=== PATIENT | female | born 1960 | race Caucasian/White ===

== ENCOUNTER 2021-10-22 08:45 | Inpatient (IN) | payer OTHER ==
[~2021-10-22] VITALS: Ht 162.6 cm; Wt 62.0 kg
[2021-10-22 21:00] VITALS: BP 113/72
[2021-10-22] MEDS ORDERED: temazepam 15mg capsule PO PRN (21:00)
--- NOTE | 2021-10-22 21:00 | NUR ---
Received patient on a stretcher patient ,on 2l/nc saturation of 92% not able to verbalize needs but responds to pain. patient, and daughter and her mother, are not able to answer admission questions. daughter verbalizes she has not seen her mother for 10 years so she has no information on the mother.
[2021-10-22] MEDS ORDERED: acetaminophen 120MG suppository, rectal RC PRN (21:40)
[2021-10-22 22:00] VITALS: BP 122/78
[2021-10-22] MEDS ORDERED: morphine 2 MG/ML inj. syringe IV PRN (22:40)
[2021-10-22] MEDS ORDERED: magnesium 2GM in 50ml NS 50 ML IV PRN (22:40)
[2021-10-22] MEDS ORDERED: HYDROcodone/acetaminophen 5mg/325mg tablet PO PRN (22:40)
[2021-10-22] MEDS ORDERED: diphenhydrAMINE 50 mg/ml inj IV PRN (22:40)
[2021-10-22] MEDS ORDERED: ondansetron/PF 4mg/2ml inj IV PRN (22:40)
[2021-10-22] MEDS ORDERED: magnesium 4gm in 100ml NS 100 ML IV PRN (22:40)
[2021-10-22] MEDS ORDERED: acetaminophen 325mg tablet PO PRN ×2 (22:40)
[2021-10-22] MEDS ORDERED: diphenhydrAMINE 25mg capsule PO PRN (22:40)
[2021-10-22] MEDS ORDERED: acetaminophen 650mg rectal suppository RC PRN (22:40)
[2021-10-22] MEDS ORDERED: potassium CL 10mEq/100ml bag 100 ML IV PRN (22:40)
[2021-10-22] MEDS ORDERED: bisacodyl 10mg suppository rectal RC PRN (22:40)
[2021-10-22] MEDS ORDERED: magnesium Cl slow-release 64mg tablet PO PRN (22:40)
[2021-10-22] MEDS ORDERED: potassium Cl 20 mEq SR tablet PO PRN ×2 (22:40)
[2021-10-22] MEDS ORDERED: mag hydrox/Alum hydrox/simeth 30ml oral suspension PO PRN (22:40)
[2021-10-22] MEDS ORDERED: magnesium hydroxide 30ml (MOM) UD suspension PO PRN (22:40)
[2021-10-22] MEDS ORDERED: ondansetron 4mg rapidly disintigrating tab PO PRN (22:40)
[2021-10-22] MEDS: ringers solution, lacted 1,000 ML IV SCH (23:44)
[2021-10-23 00:13] LABS: ABG BASE EXCESS -0.4 mmol/L (-2.0-2.0); ABG HCO3 22.3 mmol/L (22.0-26.0); ABG PCO2 (T) 30.3 mmHg (32.0-45.0); ABG PO2 (T) 86.8 mmHg (75.0-100.0); ALLEN'S TEST POSITIVE; FCOHb 0.3 % (0.0-3.9); FLOW 2 L/min; FMetHb 0.3 % (0.0-1.5); FO2Hb 96.4 % (94-97); TOTAL HEMOGLOBIN 11.1 G/dl (12.0-16.0)
[2021-10-23 00:48] LABS: APTT 26 SECONDS (22-32)
[2021-10-23 00:51] LABS: HEMOGLOBIN A1C 4.4 % (4.5-6.2)
[2021-10-23 01:19] LABS: CREATINE KINASE 347 U/L (26-192); PHOSPHORUS 2.9 MG/DL (2.3-4.5); POTASSIUM 4.2 MMOL/L (3.5-5.1)
[2021-10-23 02:00] VITALS: BP 118/68
[2021-10-23] MEDS ORDERED: VANCOmycin 1250MG/NS 250ml Bag 250 ML IV ONE (05:35)
[2021-10-23] MEDS ORDERED: dextrose 50%-water 50ml dispensing syringe IV PRN ×2 (05:40)
[2021-10-23] MEDS ORDERED: dextrose ORAL solution 15 GM/59 ML bottle PO PRN ×2 (05:40)
[2021-10-23] MEDS ORDERED: insulin Lispro (HumaLOG) vial - multi-dose SQ SCH (05:40)
[2021-10-23] MEDS ORDERED: glucagon, human recombinant 1mg kit SUBCUT PRN (05:40)
[2021-10-23] MEDS ORDERED: MESSAGE TO PHARMACY PO ONE (05:40)
[2021-10-23 06:00] VITALS: BP 121/64
[2021-10-23 06:07] LABS: BASOPHILS # (AUTO) 0.1 X10'3 (0-0.2); BASOPHILS % (AUTO) 0.7 % (0-1); EOSINOPHILS % (AUTO) 0 % (0-6); HEMATOCRIT 29.3 % (35.0-45.0); HEMOGLOBIN 9.7 g/dl (12.0-16.0); MEAN CORPUSCULAR HEMOGLOBIN 30.3 PG (27.0-31.0); MEAN CORPUSCULAR HGB CONC 33.2 g/dL (33.0-36.5); MEAN CORPUSCULAR VOLUME 91.3 FL (78-98); MEAN PLATELET VOLUME 7.6 FL (7.4-10.4); MONOCYTES # (AUTO) 1.6 X10'3 (0-0.9); MONOCYTES % (AUTO) 8.4 % (2-12); NEUTROPHILS % (AUTO) 74.9 % (42-75); PLATELET COUNT 319 X10'3 (140-440); RED BLOOD COUNT 3.21 X10'6 (4.20-5.60); RED CELL DISTRIBUTION WIDTH 19.5 % (11.5-14.5); WHITE BLOOD COUNT 18.7 X10'3 (4.5-11.0)
[2021-10-23 06:56] LABS: ALANINE AMINOTRANSFERASE 48 U/L (12-78); ALBUMIN 1.2 G/DL (3.4-5.0); ALBUMIN/GLOBULIN RATIO 0.3 (1.1-1.5); ALKALINE PHOSPHATASE 645 IU/L (46-116); ANION GAP 12 (8-16); ASPARTATE AMINO TRANSFERASE 118 U/L (10-37); BILIRUBIN,TOTAL 5.4 MG/DL (0.1-1.0); BLOOD UREA NITROGEN 30 MG/DL (7-18); BUN/CREATININE RATIO 32.6 (6.6-38.0); CHLORIDE 109 MMOL/L (99-107); CREATININE 0.92 MG/DL (0.40-0.90); GLUCOSE 91 MG/DL (70-104); MAGNESIUM 1.9 MG/DL (1.5-2.4); SODIUM 145 MMOL/L (135-145); TOTAL CARBON DIOXIDE 24.1 MMOL/L (24-32); TOTAL PROTEIN 5.9 G/DL (6.4-8.2); eGFR 62 ML/MIN
[2021-10-23 06:57] LABS: POTASSIUM 2.8 MMOL/L (3.5-5.1)
[2021-10-23] MEDS: piperacillin/tazo 3.375gm/50ml 50 ML IV SCH ×3 (07:00→23:38)
[2021-10-23] MEDS: docusate sod 100mg capsule PO SCH ×2 (08:00→20:00)
--- NOTE | 2021-10-23 08:19 | NUR ---
Floated to Med Surg report given to Shaina around 8am.
[2021-10-23] MEDS: Levetiracetam-NS 500mg/100ml 100 ML IV SCH ×2 (08:40→21:00)
[2021-10-23] MEDS: pantoprazole 40MG/NS 100ML BAG 100 ML IV SCH (08:41)
[2021-10-23 09:43] LABS: APTT 28 SECONDS (22-32)
[2021-10-23 10:16] LABS: CREATINE KINASE 346 U/L (26-192)
[2021-10-23 10:24] LABS: % IRON SATURATION 54 % (11-46); IRON 45 UG/DL (49-151); TOTAL IRON BINDING CAPACITY 83 UG/DL (259-388)
[2021-10-23 11:00] VITALS: BP 110/56
[2021-10-23 12:03] LABS: ANISOCYTOSIS 2+; PLATELET ESTIMATE NORMAL; STOMATOCYTES 1+; TARGET CELLS 1+
--- NOTE | 2021-10-23 12:07 | NUR ---
Initial: Pt transferred from alternate facility for higher level of care due to; sepsis, multiple distant metastasis uterine cancer, jaundice, CHF exacerbation, and acute kidney failure per EMR. Pt w/ new onset DM per MD note. Noted A1c of 4.4; appropriate per ADA guidelines. Pt on clear liquid diet; pending PO trends. Recommend advancing to sodium restricted diet as medically appropriate in view of CHF to help meet kcal/protein needs. No documented BM; receiving routine bowel care. Will continue to monitor. Recommendations: 1. Advance diet to sodium restricted as medically appropriate 2. Monitor need for additional protein/ONS 3. Bowel care per Rx 4. Weekly wt Addendum: 10/23/21 at [address] Amended: Links added. Addendum: 10/23/21 at [address] I have reviewed and agree with note by Assembler Chassis. MIGDALIA Gaxiola
[2021-10-23] MEDS: ringers solution, lacted 1,000 ML IV SCH (13:48)
--- NOTE | 2021-10-23 13:52 | NUR ---
Nutrition Consult: Pt nutrition status assessed w/ recommendations made today; see prior note for details. Addendum: 10/23/21 at [address] Amended: Links added.
[2021-10-23] MEDS ORDERED: UNABLE TO OBTAIN (14:45)
[2021-10-23 15:00] VITALS: BP 115/74
--- NOTE | 2021-10-23 16:46 | NUR ---
PATIENT ROOM 12B WAS ORDERED CT WITH CONTRAST AND ISN'T ALERT TO SIGN FOR THE CONSENT AND ANSWER THE QUESTIONS . PAGED DOCTOR
[2021-10-23 17:54] LABS: C-REACTIVE PROTEIN 17.29 MG/DL (0.0-0.5)
[2021-10-23 18:05] LABS: HIV ANTIBODY 1&2 RAPID NON-REACTIVE (Neg)
[2021-10-23] MEDS: VANCOMYCIN 1GM/200ML IVPB 200 ML IV SCH (18:30)
[2021-10-23] MEDS: K and/or MAG REPLACEMENT MC SCH (20:00)
[2021-10-23 22:00] VITALS: BP 112/69
[2021-10-24 02:00] VITALS: BP 132/73
[2021-10-24] MEDS: VANCOMYCIN 1GM/200ML IVPB 200 ML IV SCH ×2 (05:22→17:00)
[2021-10-24 05:54] LABS: BASOPHILS # (AUTO) 0.1 X10'3 (0-0.2); BASOPHILS % (AUTO) 0.3 % (0-1); EOSINOPHILS % (AUTO) 0.1 % (0-6); HEMATOCRIT 30.1 % (35.0-45.0); HEMOGLOBIN 9.8 g/dl (12.0-16.0); LYMPHOCYTES % (AUTO) 13.6 % (21-51); MEAN CORPUSCULAR HEMOGLOBIN 29.9 PG (27.0-31.0); MEAN CORPUSCULAR HGB CONC 32.6 g/dL (33.0-36.5); MEAN CORPUSCULAR VOLUME 91.7 FL (78-98); MEAN PLATELET VOLUME 7.2 FL (7.4-10.4); MONOCYTES # (AUTO) 1.4 X10'3 (0-0.9); MONOCYTES % (AUTO) 6.3 % (2-12); NEUTROPHILS # (AUTO) 17.3 X10'3 (1.8-7.7); NEUTROPHILS % (AUTO) 79.7 % (42-75); PLATELET COUNT 331 X10'3 (140-440); RED BLOOD COUNT 3.28 X10'6 (4.20-5.60); WHITE BLOOD COUNT 21.8 X10'3 (4.5-11.0)
[2021-10-24 06:00] VITALS: BP 111/64
--- NOTE | 2021-10-24 06:00 | NUR ---
Patient in room PCU 3012. I have received report from Gabi and had the opportunity to ask questions and assume patient care.
[2021-10-24 06:23] LABS: HBSAG SCREEN Negative (Negative); HEP A AB, IGM Negative (Negative); HEPATITIS C ANTIBODY 1.4 s/co ratio (0.0-0.9)
[2021-10-24 06:47] LABS: ALANINE AMINOTRANSFERASE 58 U/L (12-78); ALBUMIN 1.2 G/DL (3.4-5.0); ALKALINE PHOSPHATASE 792 IU/L (46-116); ANION GAP 11 (8-16); ASPARTATE AMINO TRANSFERASE 158 U/L (10-37); BLOOD UREA NITROGEN 21 MG/DL (7-18); BUN/CREATININE RATIO 25.6 (6.6-38.0); CALCIUM 9.4 MG/DL (8.5-10.1); CHLORIDE 110 MMOL/L (99-107); CREATININE 0.82 MG/DL (0.40-0.90); GLUCOSE 106 MG/DL (70-104); MAGNESIUM 1.7 MG/DL (1.5-2.4); SODIUM 146 MMOL/L (135-145); TOTAL CARBON DIOXIDE 25.5 MMOL/L (24-32); eGFR 71 ML/MIN
[2021-10-24 06:49] LABS: ALBUMIN/GLOBULIN RATIO 0.3 (1.1-1.5); POTASSIUM 3.8 MMOL/L (3.5-5.1); TOTAL PROTEIN 5.9 G/DL (6.4-8.2)
[2021-10-24] MEDS: piperacillin/tazo 3.375gm/50ml 50 ML IV SCH ×2 (07:20→16:12)
[2021-10-24] MEDS: pantoprazole 40MG/NS 100ML BAG 100 ML IV SCH (07:20)
[2021-10-24] MEDS: Levetiracetam-NS 500mg/100ml 100 ML IV SCH ×2 (07:20→20:29)
[2021-10-24] MEDS: docusate sod 100mg capsule PO SCH ×2 (07:21→20:00)
--- NOTE | 2021-10-24 07:21 | NUR ---
patient is non verbal, unsure if she's able to swallow safely. will page for an order for bedsife swallow
[2021-10-24] MEDS: K and/or MAG REPLACEMENT MC SCH ×2 (08:00→20:00)
--- NOTE | 2021-10-24 10:22 | NUR ---
Noted pt with a low Home of 12. Per EMR pt with no edema and skin is intact. Addendum: 10/24/21 at [address] Amended: Links added.
[2021-10-24 11:00] VITALS: BP 111/64
[2021-10-24 11:50] LABS: AFP,SERUM, TUMOR MARKER 26.8 ng/mL (0.0-8.3); CARCINOEMBRYONIC ANTIGEN 9.1 ng/mL (0.0-4.7)
[2021-10-24] MEDS ORDERED: iohexol 300mg/ml 100ml inj. ONE (14:33)
[2021-10-24 15:00] VITALS: BP 127/87
[2021-10-24] MEDS ORDERED: VANCOMYCIN LEVEL IV ONE (16:30)
--- NOTE | 2021-10-24 17:35 | NUR ---
page sent PAGER ID: [phone] MESSAGE: [id number]- Melina Zuluagasrinivas. Pancreatic Cancer with [facility]. Lab has not been able to get any blood on her, they have tried 4 times. if you still want her labs, they can try to send someone else around 1830
[2021-10-24] MEDS ORDERED: morphine 10mg/ml inj. IV PRN (17:40)
--- NOTE | 2021-10-24 17:41 | NUR ---
page sent: PAGER ID: [phone] MESSAGE: [id number] Melina Flores . they could not get her labs for the vanco trough level, should I go ahead give the 1700 vanco? Per doctor: AIMEE all meds, patient is to be on comfort care
[2021-10-24 18:00] VITALS: BP 110/61
--- NOTE | 2021-10-24 18:23 | NUR ---
Page sent PAGER ID: [phone] MESSAGE: [phone] Flores. Please don't forget your comfort care orders for drum tender. Thanks Flory. i'll be leaving, the new nurse name is Lilian [phone]
[2021-10-25] MEDS: piperacillin/tazo 3.375gm/50ml 50 ML IV SCH (02:59)
[2021-10-25 06:00] VITALS: BP 145/69
--- NOTE | 2021-10-25 06:00 | NUR ---
Patient in room PCU 3009. I have received report from AMY Quintana and had the opportunity to ask questions and assume patient care.
[2021-10-25] MEDS: VANCOMYCIN 1GM/200ML IVPB 200 ML IV SCH (06:05)
--- NOTE | 2021-10-25 06:43 | NUR ---
Received call from lab WBC 27.[address] Andrade made aware of lab result no new order received.
[2021-10-25 06:48] LABS: ALANINE AMINOTRANSFERASE 66 U/L (12-78); ALBUMIN 1.5 G/DL (3.4-5.0); ALKALINE PHOSPHATASE 936 IU/L (46-116); ANION GAP 16 (8-16); BILIRUBIN,TOTAL 5.7 MG/DL (0.1-1.0); BLOOD UREA NITROGEN 19 MG/DL (7-18); BUN/CREATININE RATIO 28.8 (6.6-38.0); CALCIUM 9.7 MG/DL (8.5-10.1); CHLORIDE 113 MMOL/L (99-107); CREATININE 0.66 MG/DL (0.40-0.90); GLUCOSE 105 MG/DL (70-104); MAGNESIUM 1.8 MG/DL (1.5-2.4); SODIUM 151 MMOL/L (135-145); TOTAL CARBON DIOXIDE 22.2 MMOL/L (24-32); eGFR > 90 ML/MIN
[2021-10-25 06:50] LABS: ALBUMIN/GLOBULIN RATIO 0.2 (1.1-1.5); ASPARTATE AMINO TRANSFERASE 141 U/L (10-37); POTASSIUM 3.9 MMOL/L (3.5-5.1); TOTAL PROTEIN 7.6 G/DL (6.4-8.2)
[2021-10-25 07:00] VITALS: BP 151/84
[2021-10-25] MEDS: docusate sod 100mg capsule PO SCH ×2 (08:00→20:00)
[2021-10-25] MEDS: Levetiracetam-NS 500mg/100ml 100 ML IV SCH ×2 (09:44→20:00)
[2021-10-25 09:56] LABS: BASOPHILS # (AUTO) 0.1 X10'3 (0-0.2); BASOPHILS % (AUTO) 0.5 % (0-1); EOSINOPHILS % (AUTO) 0.1 % (0-6); HEMATOCRIT 31.1 % (35.0-45.0); HEMOGLOBIN 10.1 g/dl (12.0-16.0); LYMPHOCYTES # (AUTO) 2.9 X10'3 (1.1-4.8); LYMPHOCYTES % (AUTO) 12.5 % (21-51); MEAN CORPUSCULAR HEMOGLOBIN 30.4 PG (27.0-31.0); MEAN CORPUSCULAR HGB CONC 32.5 g/dL (33.0-36.5); MEAN CORPUSCULAR VOLUME 93.6 FL (78-98); MEAN PLATELET VOLUME 7.3 FL (7.4-10.4); MONOCYTES # (AUTO) 1.8 X10'3 (0-0.9); MONOCYTES % (AUTO) 7.7 % (2-12); NEUTROPHILS # (AUTO) 18.3 X10'3 (1.8-7.7); NEUTROPHILS % (AUTO) 79.2 % (42-75); PLATELET COUNT 367 X10'3 (140-440); RED BLOOD COUNT 3.32 X10'6 (4.20-5.60); RED CELL DISTRIBUTION WIDTH 19.4 % (11.5-14.5)
--- NOTE | 2021-10-25 10:56 | NUR ---
F/u: Noted patient's code status has changed to DNR with comfort care. Will continue to follow per LOS. Recommendations: 1) Bowel care per comfort care measures Addendum: 10/25/21 at [address] Amended: Links added.
--- NOTE | 2021-10-25 16:51 | NUR ---
Per Dr Cosme, Discontinue patient oxygen after patient's friend leaves.
[2021-10-25 18:00] VITALS: BP 93/69
[2021-10-25] MEDS: LORazepam 2 mg/ml vial IV PRN (18:15)
[2021-10-25] MEDS: morphine 10mg/0.5ml (conc. morphine) oral syringe PO PRN (21:42)
[2021-10-26] MEDS: morphine 10mg/0.5ml (conc. morphine) oral syringe PO PRN ×2 (05:42→22:09)
[2021-10-26] MEDS: LORazepam 2 mg/ml vial IV PRN ×2 (06:38→22:42)
--- NOTE | 2021-10-26 06:53 | NUR ---
Patient in room PCU 3009. I have received report from AMY Quintana and had the opportunity to ask questions and assume patient care.
[2021-10-26] MEDS: Levetiracetam-NS 500mg/100ml 100 ML IV SCH ×2 (08:00→20:00)
[2021-10-26] MEDS: docusate sod 100mg capsule PO SCH ×2 (08:00→20:00)
--- NOTE | 2021-10-26 22:15 | NUR ---
Received report from Mike Rivas. Patient to be transferred over from Tele unit.
--- NOTE | 2021-10-26 23:13 | NUR ---
Patient arrived to floor via bed from [facility] unit and now in 350B. Patient is comfort care and has a visitor with her. Patient is currently resting eyes closed, respirations steady and in no distress.
--- NOTE | 2021-10-26 23:23 | NUR ---
Patient transfer to [facility] member present report given to nurse Damian
[2021-10-27] VITALS: BP 108/71
--- NOTE | 2021-10-27 00:10 | NUR ---
Per daughter Delma it is ok to allow these visitors to see her mom in the hospital 1)Marce, 2)Alfonzo (she thinks) and caleb daughter 3)Kathrin.
[2021-10-27] MEDS: LORazepam 2 mg/ml vial IV PRN ×2 (03:08→14:16)
--- NOTE | 2021-10-27 04:00 | NUR ---
Visitor Paxton is in visiting.
--- NOTE | 2021-10-27 06:30 | NUR ---
Problems reprioritized. Patient report given, questions answered & plan of care reviewed with Jo REYES.
[2021-10-27] MEDS: morphine 10mg/0.5ml (conc. morphine) oral syringe PO PRN ×4 (06:36→21:32)
[2021-10-27 07:00] VITALS: BP 100/66
--- NOTE | 2021-10-27 18:40 | NUR ---
Patient in room JAEL 350. I have received report from Jo REYES and had the opportunity to ask questions and assume patient care.
[2021-10-27 19:00] VITALS: BP 96/62
[2021-10-28] MEDS: morphine 10mg/0.5ml (conc. morphine) oral syringe PO PRN ×2 (03:35→08:14)
--- NOTE | 2021-10-28 06:30 | NUR ---
Problems reprioritized. Patient report given, questions answered & plan of care reviewed with Jo REYES.
--- NOTE | 2021-10-28 10:02 | NUR ---
Wound care in with the social media community manager for skin assessment. The patient is lying in bed with no visible signs of life. Primary RN alerted. Left the patient in the care of the RN and social media community manager for assessment. Addendum: 10/28/21 at 1004 by Kasey Marlow RN Amended: Links added.
--- NOTE | 2021-10-28 10:04 | NUR ---
PAGER ID: [phone] MESSAGE: Savanah-Surg [phone] Re: [place] [phone] Has passed. please call.
--- NOTE | 2021-10-28 10:11 | NUR ---
RN IS TO DOCUMENT YES TO ALL APPLICABLE AREAS Pronouncement of : 1. Time Physician Notified: DR. MENDIOLA 2. Date of : 10/28/21 3. Time of : 999 4. DNR/Withdraw life support documented: 5. Monitor strip has been placed on chart: Y 6. Assessment process is of one-minute duration and includes following criteria: a) Patient is unresponsive to all stimuli: Y b) Pupils fixed and non-reactive:Y c) Auscultation of precordium reveals absence of heart tones:Y d) Auscultation of lungs reveals absence of breath sounds:Y e) Absence of blood pressure / all vital signs:Y f) QRS complexes are not present on monitor / EKG strip:Y g) Pacer spikes without capture: 4. Comments:
--- NOTE | 2021-10-28 11:04 | NUR ---
daughter mike notified of , donor network contacted( ref #[id number]), awaiting return call re: donor eligibility before calling mortuary.
--- NOTE | 2021-10-28 12:32 | NUR ---
rn called donor network again and was made aware that pt can be released, not a donor candidate. thang phillips called to arrange pick-up. spoke with ENRIQUE reddy 1hr
== END 2021-10-28 16:13 | DRG 871 ==
LOC: PCU 3S 08:45 → UNDOADMIN 08:45 → PCU 3S 22:28 → SUR 3N 10-26 22:57
PROVIDERS: ADMIT Family Medicine; ATTEND Family Medicine
PROC: BW251ZZ Computerized Tomography (CT Scan) of Chest, Abdomen and Pelvis using Low Osmolar Contrast (ICD-10-PCS; principal; 2021-10-24)
DX: A41.9 Sepsis, unspecified organism (principal); I50.43 Acute on chronic combined systolic (congestive) and diastolic (congestive) heart failure; G93.41 Metabolic encephalopathy; C22.9 Malignant neoplasm of liver, not specified as primary or secondary; C25.9 Malignant neoplasm of pancreas, unspecified; K80.10 Calculus of gallbladder with chronic cholecystitis without obstruction; M62.82 Rhabdomyolysis; N17.9 Acute kidney failure, unspecified; N39.0 Urinary tract infection, site not specified; I74.8 Embolism and thrombosis of other arteries; Z20.822 Contact with and (suspected) exposure to COVID-19; C55 Malignant neoplasm of uterus, part unspecified; E11.22 Type 2 diabetes mellitus with diabetic chronic kidney disease; E11.65 Type 2 diabetes mellitus with hyperglycemia; E83.42 Hypomagnesemia; E87.6 Hypokalemia; E88.09 Other disorders of plasma-protein metabolism, not elsewhere classified; F15.129 Other stimulant abuse with intoxication, unspecified; K72.90 Hepatic failure, unspecified without coma; N18.9 Chronic kidney disease, unspecified; R56.9 Unspecified convulsions; Z51.5 Encounter for palliative care
CPT/HCPCS: 36415; 36600; 71045; 71260; 74177; 76700; 80053; 80074; 80202; 82103; 82140; 82378; 82550; 82803; 82948; 83036; 83540; 83550; 83605; 83735; 83880; 84100; 84132; 84145; 84439; 84443; 84484; 85008; 85018; 85025; 85610; 85730; 86140; 86301; 86304; 86592; 86703; 87040; 87081; 87635; 93005; 97110; 97162; 97530; C9113; G0378; J1815; J1953; J2060; J2543; J3370; J3480; J3490; J7120; Q9967